=== PATIENT | female | born 1995 ===

== ENCOUNTER 2017-08-10 08:59 | Inpatient (IN) | payer MEDICAID ==
[2017-08-10 09:11] VITALS: BMI 23.9
[2017-08-10 10:11] LABS: BASO % 0.5 % (0.0-2.0); EOS # 0.1 K/uL (0.0-0.7); EOS % 0.7 % (0.0-4.0); HEMOGLOBIN 12.7 g/dL (11.0-16.0); LYMPH # 1.6 K/uL (1.0-4.3); LYMPH % 20.8 % (20.0-40.0); MEAN CELL VOLUME 85.5 fL (81.0-99.0); MEAN CORPUSCULAR HEMOGLOBIN 29.9 pg (27.0-31.0); MEAN PLATELET VOLUME 7.8 fL (7.2-11.7); MONO # 0.7 K/uL (0.0-0.8); MONO % 9.7 % (0.0-10.0); NEUT # 5.3 K/uL (1.8-7.0); NEUT % 68.3 % (50.0-75.0); NRBC % 0.1 % (0.0-2.0); RBC 4.26 Mil/uL (3.80-5.20); RED CELL DISTRIBUTION WIDTH 13.4 % (11.5-14.5); WHITE BLOOD COUNT 7.8 K/uL (4.8-10.8)
[2017-08-10 10:16] LABS: SQUAMOUS EPITHIAL 5 /hpf (0-5); URINE BACTERIA RARE (<OCC); URINE BILIRUBIN NEGATIVE (NEGATIVE); URINE BLOOD 3+ (NEGATIVE); URINE CLARITY Hazy (Clear); URINE COLOR Red (YELLOW); URINE GLUCOSE (UA) NORMAL (Normal); URINE LEUKOCYTE ESTERASE 3+ Leu/uL (Negative); URINE PROTEIN NEGATIVE (NEGATIVE); URINE UROBILINOGEN NORMAL mg/dL (0.2-1.0)
[2017-08-10 10:22] LABS: HCG,QUALITATIVE URINE NEGATIVE (NEGATIVE)
--- NOTE | 2017-08-10 10:22 | C.PDOC ---
History Of Present Illness 21 y/o female with history of Bipolar disorder brought to ED by mother for evaluation of aggression, crying, trashing house and stating she does not want to live anymore. As per mother patient was hospitalized in [facility] 3 years ago for similar episode. Patient states "I am not woman enough" and as per mother patient hits herself and does not feel it. Patient admits to occasionally having suicidal ideation and denies any physical complaints at this time. Time Seen by Provider: 08/10/17 09:24 Chief Complaint (Nursing): Psychiatric Evaluation History Per: Patient History/Exam Limitations: no limitations Onset/Duration Of Symptoms: Days Current Symptoms Are (Timing): Still Present Suicide/Self Injury Attempted (Context): None Associated Symptoms: Depression, Suicidal Thoughts Past Medical History Reviewed: Historical Data, Nursing Documentation, Vital Signs Vital Signs: Last Vital Signs Temp 98.1 F 08/10/17 09:11 Pulse 72 08/10/17 09:11 Resp 18 08/10/17 09:11 BP 122/87 08/10/17 09:11 Pulse Ox 100 08/10/17 10:31 - Medical History PMH: Bipolar Disorder Surgical History: No Surg Hx Family History: States: No Known Family Hx - Social History Hx Alcohol Use: No Hx Substance Use: No - Immunization History Hx Tetanus Toxoid Vaccination: No Hx Influenza Vaccination: Yes Hx Pneumococcal Vaccination: No Review Of Systems Constitutional: Negative for: Fever, Chills Cardiovascular: Negative for: Chest Pain Respiratory: Negative for: Shortness of Breath Gastrointestinal: Negative for: Nausea, Vomiting Psych: Positive for: Depression, Suicidal ideation Physical Exam - Physical Exam Appears: Non-toxic, No Acute Distress, Other (Tearful, Cooperative) Skin: Warm, Dry, No Rash Head: Atraumatic, Normacephalic Eye(s): bilateral: Normal Inspection Oral Mucosa: Moist Neck: Normal ROM, Supple Cardiovascular: Rhythm Regular Respiratory: Normal Breath Sounds, No Rales, No Rhonchi, No Wheezing Gastrointestinal/Abdominal: Soft, No Tenderness, No Guarding, No Rebound Extremity: Normal ROM, Capillary Refill (<2 seconds) Neurological/Psych: Oriented x3, Normal Speech, Normal Cognition ED Course And Treatment - Laboratory Results Result Diagrams: 08/10/17 10:05 08/10/17 10:05 O2 Sat by Pulse Oximetry: 100 (RA) Pulse Ox Interpretation: Normal Disposition - Disposition Disposition: HOSPITALIZED Disposition Time: 11:23 Condition: STABLE Forms: [facility] ([place]) - Clinical Impression Clinical Impression: Bipolar 1 disorder - Scribe Statement The provider has reviewed the documentation as recorded by the Naaibselena Galloway All medical record entries made by the Scribe were at my direction and personally dictated by me. I have reviewed the chart and agree that the record accurately reflects my personal performance of the history, physical exam, medical decision making, and the department course for this patient. I have also personally directed, reviewed, and agree with the discharge instructions and disposition. Decision To Admit - Pt Status Changed To: Hospital Disposition Of: Inpatient - Admit Certification Admit to Inpatient:: After my assessment, the patient will require hospitalization for at least two midnights. This is because of the severity of symptoms shown, intensity of services needed, and/or the medical risk in this patient being treated as an outpatient. - InPatient: Physician Admission Certification: I certify that this patient requires 2 or more midnights of care for the following reason:: unmedicated bipolar - . Bed Request Type: Psychiatry Admitting Physician: Elke Gonzalez Patient Diagnosis: Bipolar 1 disorder
[2017-08-10 10:36] LABS: BARBITURATES, UR NEGATIVE (NEGATIVE); BENZODIAZEPINES, UR NEGATIVE (NEGATIVE); OPIATES, UR NEGATIVE (NEGATIVE); PHENCYCLIDINE, UR NEGATIVE (NEGATIVE)
[2017-08-10 10:38] LABS: ALB/GLOB RATIO 1.3 (1.0-2.1); ALBUMIN 4.1 g/dL (3.5-5.0); ALT/SGPT 14 U/L (9-52); AST/SGOT 25 U/L (14-36); BLOOD UREA NITROGEN 11 mg/dL (7-17); CALCIUM 9.1 mg/dl (8.6-10.4); GFR AFRICAN-AMERICAN > 60; GFR NON-AFRICAN AMERICAN > 60
--- NOTE | 2017-08-10 14:48 | PCM.BM ---
<Annie Vides - Last Filed: 08/10/17 14:46> Treatment Plan Problems - Problems identified on initial assessmt Depression Date Initiated: 08/10/17 Time Initiated: 14:46 Assessment reference: NA Treatment assets and liabiliti Patient Assests: cooperative, ADL independent, physically healthy, good support system, cognitively intact Patient Liabilities: relationship conflicts, language/speech - Milieu Protocol Maintain good personal hygiene: daily Encourage regular showers Conduct patient checks and document Observation sheet: Q15 minutes Maintain personal safety: every shift Educate patient to report safety concerns to staff, every shift Monitor environment for contraband/sharps Medication safety: Monitor for expected outcome, potential side effects: every shift, Assess barriers to learning: every shift, Assess readiness for medication education: every shift <Elke Gonzalez - Last Filed: 08/11/17 11:43> - Diagnosis (1) Bipolar 1 disorder Status: Acute Interventions: 08/11/17 11:43 * Assess/adjust medications daily and /or as needed * See patient on an individual basis 7x/week to assess level of manic behaviors and stability * Discuss risks, benefits, side effects and alternatives of medications * <Joanne Retana - Last Filed: 08/11/17 13:32> Family Contact Family involvement: Family/SO is involved Family contact: Patient agrees to contact Family contact name: Yvette Watt-mother Family contacted how many times per week?: 1 - Goals for Treatment Patient goals for treatment: "I need help." Discharge/Continuing Care - Education Needs Education Needs: Patient Medication, Patient Coping Skills - Discharge Discharge Criteria: Tolerates medication w/o severe side effects, Free of Suicidal thoughts, Reduction of target symptoms Discharge to:: Home, With Family - Treatment Team Participation Discussed with Family/SO: No Was Patient/Family/SO present at Treatment Team Meeting: Yes
--- NOTE | 2017-08-11 10:35 | PCM.PSYCH ---
Initial Psychiatric Evaluation - Initial Psychiatric Evaluation Type of Admission: Voluntary Legal Status: Capacity Chief Complaint (in patient's own words): I was feeling depressed and suicidal.' History of Present Illness and Precipitating Events: Pt is a 21 year old [place] Citizen speaking, female from [facility], who came to the ED because of depressed mood and suicidal ideation. Pt stated [place] to the [place] I was being bullied, I was kicked out of school my sophomore year because I was being blamed for everything. Pt came to [facility] today because she has anxiety and depression. Pt stated that, I feel worthless, I am afraid everyone is going to bully me everywhere I go. Pt stated she started having suicidal thoughts about 9 years ago in [facility] because of being bullied. Pt tried to kill herself by hanging with the rope, 7 years go but the rope broke. Pt stated she was treated for bipolar disorder in [facility] with some medications but does not remember the name of the pill. Pt reports depressed mood, feelings of hopelessness and helplessness. Pt also reports racing thoughts, a lot of energy, breaking things, and violent behavior. Mother also reports that pt does not sleep, has an hx of violent behavior; has outbursts and tantrums on a regular basis. Mom expressed her concerned of safety due to minor children residing in the home. Mom stated pts uncle has anxiety and depression. Pt also reports racing thoughts, a lot of energy, breaking things, and violent behavior. She also reports of hearing voices, AH and seeing devils. She went to the [facility] few days ago and they gave her a shot. She denies any substance abuse. PMH: None Current Medications: Active Medications Generic Name Dose Route Start Last Admin Trade Name Freq PRN Reason Stop Dose Admin Benztropine Mesylate 2 mg 08/10/17 13:10 Cogentin PO Q6 PRN Extra Pyramidal Symptoms Diphenhydramine HCl 50 mg 08/10/17 13:10 Benadryl PO Q6 PRN Extra Pyramidal Symptoms Haloperidol 5 mg 08/10/17 13:36 Haldol PO Q8 PRN Moderate Agitation Lorazepam 1 mg 08/10/17 13:36 Ativan PO Q6 PRN Anxiety Trazodone HCl 50 mg 08/10/17 22:00 08/10/17 21:36 Desyrel PO 50 mg HS NATANAEL Administration Past Psychiatric History - Past Psychiatric History Previous Treatment History: Inpatient Pertinent Medical Hx (Current Medical&Sleep Prob, Allergies): Allergies Allergy/AdvReac Type Severity Reaction Status Date / Time No Known Allergies Allergy Verified 08/10/17 09:11 No Known Home Med 08/10/17 Review of Systems - Review of Systems All systems: reviewed and no additional remarkable complaints except - Psychiatric Psychiatric: Anxiety, Auditory Hallucinations, Irritability, Mood Swings, Paranoia, Suicidal Ideation Mental Status Examination - Personal Presentation Personal Presentation: Looks stated age - Affect Affect: Broad - Motor Activity Motor Activity: Psychomotor Agitation - Reliability in Providing Information Reliability in Providing Information: Poor, due to altered mood - Speech Speech: Organized - Mood Mood: Depressed, Anxious - Formal Thought Process Formal Thought Process: Hallucinations, Delusions, Paranoia, Flight of ideas - Hallucinations/Delusions Delusions: Persecution - Obsessions/Compulsions Obsessions: No Compulsions: No - Cognitive Functions Orientation: Person, Place, Situation, Time Sensorium: Alert Attention/Concentration: Attentive Abstract Thinking: [place] Estimate of Intelligence: Below average Judgement: Imparied, as evidence by: Poor judgement, Imparied, as evidence by: Lack of insight into illness - Risk Risk: Suicidal, Diminished functioning - Strength & Assets Inventory Strength & Assets Inventory: Family support DSM 5 DX - DSM 5 DSM 5 Diagnosis: 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
--- NOTE | 2017-08-12 13:02 | PCM.PYCHPN ---
Psychiatric Progress Note - Psychiatric Progress Note Patient seen today, length of contact: 16 min Medication Change: Yes (add seroquel) Medical Record Reviewed: Yes Mental Status Examination - Cognitive Function Orientation: Person, Place, Situation, Time - Mood Mood: Depressed, Anxious - Affect Affect: Broad - Formal Thought Process Formal Thought Process: Hallucinations, Delusions, Paranoia, Flight of ideas - Homicidal Ideation Homicidal Ideation: No
[2017-08-12] MEDS ORDERED: Aluminum Hydroxide/Magnesium Hydroxide Susp (30 mL) PO PRN (21:01)
[2017-08-13 10:08] VITALS: RESP 18
[2017-08-14 07:38] VITALS: BP 118/70; PULSE 67; TEMP 98.1; O2SAT 98
--- NOTE | 2017-08-14 10:15 | PCM.PYCHDC ---
Mental Status Examination - Mental Status Examination Orientation: Person, Place, Situation, Time Memory: Intact Mood: Neutral Affect: Constricted Speech: Soft Attention: WNL Concentration: WNL Association: WNL Fund of Knowledge: WNL Formal Thought Process: No Impairment Description of patient's judgement and insight: good, fair Psychotic Thoughts and Behaviors: denies any AVH Suicidal Ideation: No Current Homicidal Ideation?: No Discharge Summary - Discharge Note Reason for Hospitalization: Pt is a 21 year old [place] speaking, female from [facility], who came to the ED because of depressed mood and suicidal ideation. Pt stated [place] the [place] I was being bullied, I was kicked out of school my sophomore year because I was being blamed for everything. Pt came to [facility] today because she has anxiety and depression. Pt stated that, I feel worthless, I am afraid everyone is going to bully me everywhere I go. Pt stated she started having suicidal thoughts about 9 years ago in [facility] because of being bullied. Pt tried to kill herself by hanging with the rope, 7 years go but the rope broke. Pt stated she was treated for bipolar disorder in [facility] with some medications but does not remember the name of the pill. Pt reports depressed mood, feelings of hopelessness and helplessness. Pt also reports racing thoughts, a lot of energy, breaking things, and violent behavior. Mother also reports that pt does not sleep, has an hx of violent behavior; has outbursts and tantrums on a regular basis. Mom expressed her concerned of safety due to minor children residing in the home. Mom stated pts uncle has anxiety and depression. Pt also reports racing thoughts, a lot of energy, breaking things, and violent behavior. She also reports of hearing voices, AH and seeing devils. She went to the [facility] few days ago and they gave her a shot. She denies any substance abuse. Consultations:: List each consultation separately and include: 1. Reason for request. 2. Findings. 3. Follow-up Summary of Hospital Course include:: 1. Description of specific treatment plan utilized for patients during their course of treatmen. 2. Summarize the time- course for resolution of acute symptoms and/or regressed behaviors. 3. Describe issues identified and worked on during hospitalization. 4. Describe medication utilized. 5. Describe medical problems identified and treated. 6. Reassessment of suicide risk Summary of Hospital Course: During the course of her stay, patient (pt) started progressively improving and no longer remained irritable, depressed, and suicidal. Her mood and anxiety were improved and she started attending groups and meetings and started socializing. Patient denied any feelings of hopelessness, helplessness, and worthlessness, denied any problem with the sleep or appetite, denied suicidal ideation or homicidal ideation. Pt denied any auditory or visual hallucinations. She denied any withdrawal symptoms. Some changes were made in her current medications and patient was discharged on following medications. She tolerated these medications very well and denied any side effects. She signed 48 hours notice, that is expiring today. She is [facility] to the [facility]. 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 Pt was educated and counseled about the risks of drinking and abusing drugs. Pt was educated and counseled to go to the ER or call 911 if pt develop suicidal ideation or homicidal ideation, worsening of symptoms or severe side effects of the meds. Prescriptions/Medication Reconciliation: Etta Carbonate [Etta Carbonate 300MG] 300 mg PO TID #90 cap QUEtiapine [Seroquel] 100 mg PO HS #30 tab - Smoking Cessation Smoking Cessation Medication prescribed: No - Antipsychotic Medications Pt discharged on 2 or more routine antipsychotic medications: No
== END 2017-08-14 11:55 | disposition home or self-care (01) | DRG 885 ==
LOC: C.ER 08:59 → C.5E 11:25
PROVIDERS: ADMIT Psychiatry & Neurology Psychiatry; ATTEND Psychiatry & Neurology Psychiatry
PROC: GZ3ZZZZ Medication Management (ICD-10-PCS; principal; 2017-08-10)
PROC: GZ3ZZZZ Medication Management (ICD-10-PCS; 2017-08-10)
PROC: GZHZZZZ Group Psychotherapy (ICD-10-PCS; 2017-08-10)
DX: F31.64 Bipolar disorder, current episode mixed, severe, with psychotic features (principal); R45.851 Suicidal ideations; Z91.5 Personal history of self-harm